=== PATIENT | female | born 1980 | race African-American/Black ===

== ENCOUNTER 2016-06-22 18:41 | Emergency (ER) | payer BC ==
[~2016-06-22] VITALS: Ht 165.1 cm; Wt 81.6 kg
[2016-06-22 18:58] VITALS: BP 151/90
[2016-06-22] MEDS ORDERED: DIPHTH,PERTUSS(ACELL),TET TOX 0.5 ML DISP.SYRIN. VAX IM ONE (20:00)
[2016-06-22] MEDS ORDERED: CEFTRIAXONE 1GM IVPB FOR OMNI 50 ML IV ONE (20:00)
[2016-06-22] MEDS ORDERED: HYDROCODONE/APAP 5/325MG TABLET. PO ONE (20:00)
[2016-06-22] MEDS ORDERED: BUPIVACAINE 0.5% 50 ML VIAL. IJ ONE (20:00)
[2016-06-22] MEDS ORDERED: CEPH500C PO (21:31)
[2016-06-22] MEDS ORDERED: HYDR-971 PO (21:31)
--- NOTE | 2016-06-22 21:31 | PHYS DOC ---
Past Medical History Past Medical History: No Pertinent History Past Surgical History: Knee Replacement Additional Past Surgical Histo: R KNEE Alcohol Use: Rarely Drug Use: None Adult General Chief Complaint Chief Complaint: LACERATION/AVULSION HPI HPI Patient is a 35 year old female who presents with his right middle finger nail avulsion, she states her right middle finger got smashed in the door. She is right-handed. Review of Systems Review of Systems Constitutional: Denies fever or chills [] Eyes: Denies change in visual acuity, redness, or eye pain [] Musculoskeletal: See integument Integument: Right middle finger nail avulsion Neurologic: Denies headache, focal weakness or sensory changes [] Endocrine: Denies polyuria or polydipsia [] Current Medications Current Medications Current Medications Medications (Trade) Dose Ordered Sig/Tom Start Time Stop Time Status Last Admin Dose Admin Acetaminophen/ Hydrocodone Bitart (Lortab 5/325) 2 tab 1X ONCE 06/22/16 20:00 06/22/16 20:01 DC 06/22/16 20:04 2 TAB Bupivacaine HCl 50 ml 50 ml 1X ONCE 06/22/16 20:00 06/22/16 20:01 DC 06/22/16 20:06 50 ML Ceftriaxone Sodium (Rocephin 1gm Ivpb For Omni) 50 ml @ 100 mls/hr 1X ONCE 06/22/16 20:00 06/22/16 20:29 DC 06/22/16 20:15 100 MLS/HR Diphtheria/ Tetanus/Acell Pertussis (Boostrix) 0.5 ml ONCE ONCE 06/22/16 20:00 06/22/16 20:01 DC 06/22/16 20:06 0.5 ML Allergies Allergies Allergies Coded Allergies Type Severity Reaction Last Updated Verified No Known Drug Allergies 06/22/16 No Physical Exam Physical Exam Constitutional: Well developed, well nourished, no acute distress, non-toxic appearance. [] HENT: Normocephalic, atraumatic, bilateral external ears normal, oropharynx moist, no oral exudates, nose normal. [] Eyes: PERRLA, EOMI, conjunctiva normal, no discharge. [] Skin: Right middle finger with a partial nail avulsion. The nail is avulsed of the nail bed as well as the right lateral aspect of the nail. The nail is still attached on the medial aspect. There is no obvious tendon involvement. Patient is able to flex and extend the right middle finger at the MIP PIP and DIP joints. +2 right radial pulse. Cap refill less than 2 seconds the right middle finger. Adequate medial sensation to the right middle finger. The laceration around the nail avulsion is approximately 3 cm long. Back: No tenderness, no CVA tenderness. [] Extremities: See integument Neurologic: Alert and oriented X 3, normal motor function, normal sensory function, no focal deficits noted. [] Psychologic: Affect normal, judgement normal, mood normal. [] Current Patient Data Vital Signs Vital Signs Date Time Temp Pulse Resp B/P Pulse Ox O2 Delivery O2 Flow Rate FiO2 06/22/16 20:04 16 97 Room Air 06/22/16 18:58 98.7 91 151/90 98.7 EKG EKG [] Radiology/Procedures Radiology/Procedures Right middle finger x-ray interpreted by Dr. Torres was positive for tuft fracture Indication: Right middle finger nail avulsion Procedure: The patient was placed in the appropriate position and the right middle finger was successfully digitally blocked with bupivacaine adequate amount. The area was then cleaned with 250 ML of normal saline. The nail was placed back in the nail bed. And held in place with 5 interrupted sutures using 5. 0 Vicryl. The wound was covered with nonstick dressing and a splint was applied to the finger by me. Total repaired wound length: Approximately 3 cm long Other Items: none The patient tolerated the procedure well Complications:none Course & Med Decision Making Course & Med Decision Making Pertinent Labs and Imaging studies reviewed. (See chart for details) Patient is in the ED with right middle finger partial nail avulsion. Right middle finger x-rays interpreted by Dr. Torres one noted for tuft fracture. Patient's laceration was closed in the nail put back in place by me. She was informed there is a slight possibility the nail may not grow back. She was given Rocephin in the ED. She was given tetanus. She was provided wound care instructions. She was discharged with instructions to follow-up with Dr. Stahl hand surgeon tomorrow. She was discharged with cephalexin Dragon Disclaimer Dragon Disclaimer This electronic medical record was generated, in whole or in part, using a voice recognition dictation system. Departure Departure Impression: Primary Impression: Open fracture of tuft of distal phalanx of finger Additional Impression: Nail avulsion, finger Disposition: 01 HOME, SELF-CARE Condition: STABLE Referrals: KOBI MORALES (PCP) CYNTHIA SPENCER MD Please call Dr. Spencer's office and ask them to schedule you to see Dr. Stahl hand surgeon. Patient Instructions: Finger Fracture, [id number], Nail Avulsion Injury Additional Instructions: You have right middle finger partial nail avulsion and finger tip fracture. The nail was placed back. There is a slight possibility it might not grow back. Please complete your antibiotics. Please call Dr. Spencer's office and ask them to schedule you to see Dr. Stahl hand surgeon as soon as possible Scripts Hydrocodone/Apap 5-325 ([place] 5-325 Tablet)1 Each Tablet1-2 Tab PO Q4-6HRS #20 TAB Prov:JEAN-PIERRE VERDUGO APRN 06/22/16 Cephalexin 500 Mg Capsule1 Cap PO TID #30 CAP Prov:JEAN-PIERRE VERDUGO APRN 06/22/16 Problem Qualifiers Primary Impression: Open fracture of tuft of distal phalanx of finger Encounter type: initial encounter Qualified Code: S62.639B - Displaced fracture of distal phalanx of unspecified finger, initial encounter for open fracture Additional Impression: Nail avulsion, finger Encounter type: initial encounter Qualified Code: S61.309A - Unspecified open wound of unspecified finger with damage to nail, initial encounter JEAN-PIERRE VERDUGO APRN Jun 22, 2016 21:31
--- NOTE | 2016-06-23 07:50 | RAD ---
Right finger radiographs History: Smashed right middle finger in door, pain. Comparison: None. Findings: PA view of the right hand. Oblique and lateral views of the third digit (middle finger). Obliquely oriented fracture is seen involving the third distal phalangeal tuft with 2 millimeters of distraction. There is soft tissue irregularity. Fracture is presumably open. Impression: Open fracture of the third distal phalanx.
== END 2016-06-22 21:40 | disposition home or self-care (01) ==
LOC: ER 18:41
DX: S62.632B Displaced fracture of distal phalanx of right middle finger, initial encounter for open fracture (principal); W23.0XXA Caught, crushed, jammed, or pinched between moving objects, initial encounter; Y93.89 Activity, other specified; Y92.89 Other specified places as the place of occurrence of the external cause; Y99.8 Other external cause status
CPT/HCPCS: 29130; 73140; 90471; 90715; 96365; 99284; J0690; J3490